=== PATIENT | female | born 1955 | race Caucasian/White ===

== ENCOUNTER 2018-06-06 13:34 | Observation (INO) ==
[2018-06-06 14:22] LABS: Basophils # 0.1 10*3/uL (0.0-0.2); Basophils % 0.9 % (0.0-0.8); Eosinophils # 0.1 10*3/uL (0.0-0.87); Eosinophils % 1.3 % (0.00-10.9); Hematocrit 42.8 VOL% (35.7-47.0); Hemoglobin 14.2 GM/DL (12.0-16.0); Immature Granulocytes % 0.3 %; Immature Granulocytes Absolute 0.03 #; Lymphocytes # 2.8 10*3/uL (1.4-4.0); Lymphocytes % 30.7 % (21.3-54.2); Mean Corpuscular HGB Conc 33.2 GM/DL (32-36); Mean Corpuscular Hemoglobin 32 PG (27-34); Mean Corpuscular Volume 95.3 FL (87-102); Mean Platelet Volume 10.1 FL (9.6-12.0); Monocytes # 0.8 10*3/uL (0.11-0.8); Neutrophils # 5.3 10*3/uL (1.4-7.4); Neutrophils % 57.8 % (38.7-73.9); Platelet Count 259 T/CUMM (130-400); Red Blood Count 4.49 MC/CUMM (3.8-5.5); Red Cell Distribution Width 13.8 % (9.3-17.3); White Blood Count 9.1 T/CUMM (4-12)
[2018-06-06 14:53] LABS: Alanine Aminotransferase 29 U/L (13-56); Albumin 3.4 G/DL (3.4-5.0); Alkaline Phosphatase 97 U/L (45-117); Aspartate Amino Transferase 19 U/L (0-37); Bilirubin,Total < 0.39 MG/DL (0.2-1.0); Blood Urea Nitrogen 17 MG/DL (7-18); Calcium 8.8 MG/DL (8.5-10.1); Glucose 118 MG/DL (74-106); Osmolality,Calculated 283.3 MOS/KG (273-304); Potassium 3.5 MMOL/L (3.5-5.1); Sodium 141 MMOL/L (136-145); Total Protein 8.1 G/DL (6.4-8.3)
[2018-06-06] MEDS ORDERED: ONDANSETRON 4 MG/2 ML VIAL IV PRN (15:39)
[2018-06-06] MEDS ORDERED: ENOXAPARIN 80 MG/0.8 ML SYRINGE SUBCUT STA (15:39)
[2018-06-06] MEDS ORDERED: ACETAMINOPHEN 325 MG TABLET PO PRN (15:39)
[2018-06-06] MEDS ORDERED: VORTIOXETINE HYDROBROMIDE 20 MG PO SCH (21:00)
[2018-06-06] MEDS: FAMOTIDINE 20 MG TABLET PO SCH (21:46)
[2018-06-06] MEDS: ROSUVASTATIN 20 MG TABLET PO SCH (21:47)
[2018-06-06] MEDS: amLODIPine 5 MG TABLET PO SCH (21:48)
[2018-06-06] MEDS: CYANOCOBALAMIN 500 MCG TABLET PO SCH (21:49)
[2018-06-06] MEDS: CLOPIDOGREL 75 MG TABLET PO SCH (21:49)
[2018-06-06] MEDS: hydroCHLOROthiazide 12.5 MG CAPSULE PO SCH (21:50)
[2018-06-06] MEDS: CARVEDILOL 25 MG TABLET PO SCH (21:50)
[2018-06-06] MEDS: ASPIRIN EC 325 MG TABLET PO SCH (21:51)
[2018-06-06] MEDS: clonazePAM 0.5 MG TABLET PO PRN (21:52)
[2018-06-06] MEDS: ZALEPLON 5 MG CAPSULE PO SCH (21:52)
[2018-06-06] MEDS: GABAPENTIN 300 MG CAPSULE PO SCH (21:54)
[2018-06-06] MEDS: DOCUSATE SODIUM 100 MG CAPSULE PO SCH (21:54)
[2018-06-07 06:35] LABS: Basophils # 0.1 10*3/uL (0.0-0.2); Basophils % 0.9 % (0.0-0.8); Eosinophils # 0.2 10*3/uL (0.0-0.87); Eosinophils % 2.1 % (0.00-10.9); Hematocrit 39.3 VOL% (35.7-47.0); Hemoglobin 13.4 GM/DL (12.0-16.0); Immature Granulocytes % 0.4 %; Immature Granulocytes Absolute 0.03 #; Lymphocytes # 3.3 10*3/uL (1.4-4.0); Lymphocytes % 42.3 % (21.3-54.2); Mean Corpuscular HGB Conc 34.1 GM/DL (32-36); Mean Corpuscular Hemoglobin 33 PG (27-34); Mean Corpuscular Volume 96.6 FL (87-102); Mean Platelet Volume 10.2 FL (9.6-12.0); Monocytes # 0.9 10*3/uL (0.11-0.8); Monocytes % 11.9 % (1.7-12.7); Neutrophils # 3.3 10*3/uL (1.4-7.4); Neutrophils % 42.4 % (38.7-73.9); Platelet Count 237 T/CUMM (130-400); Red Blood Count 4.07 MC/CUMM (3.8-5.5); Red Cell Distribution Width 13.8 % (9.3-17.3); White Blood Count 7.8 T/CUMM (4-12)
[2018-06-07 07:19] LABS: Calcium 8.5 MG/DL (8.5-10.1); Osmolality,Calculated 281.5 MOS/KG (273-304); Potassium 3.6 MMOL/L (3.5-5.1); Thyroid Stimulating Hormone 1.71 uIU/ml (0.358-3.74)
[2018-06-07] MEDS: DOCUSATE SODIUM 100 MG CAPSULE PO SCH ×2 (09:23→21:16)
[2018-06-07] MEDS: PANTOPRAZOLE 40 MG TABLET PO SCH (09:23)
[2018-06-07] MEDS ORDERED: NITROGLYCERIN SL 0.4 MG TABLET SL PRN (09:36)
[2018-06-07 10:33] LABS: Risk Ratio 10.19; VLDL CHOLESTEROL 258.8 MG/DL
[2018-06-07] MEDS: GEMFIBROZIL 600 MG TABLET PO SCH (16:29)
[2018-06-07] MEDS: CYANOCOBALAMIN 500 MCG TABLET PO SCH (21:11)
[2018-06-07] MEDS: GABAPENTIN 300 MG CAPSULE PO SCH (21:11)
[2018-06-07] MEDS: ZALEPLON 5 MG CAPSULE PO SCH (21:12)
[2018-06-07] MEDS: hydroCHLOROthiazide 12.5 MG CAPSULE PO SCH (21:13)
[2018-06-07] MEDS: FAMOTIDINE 20 MG TABLET PO SCH (21:13)
[2018-06-07] MEDS: clonazePAM 0.5 MG TABLET PO PRN (21:14)
[2018-06-07] MEDS: CARVEDILOL 25 MG TABLET PO SCH (21:14)
[2018-06-07] MEDS: CLOPIDOGREL 75 MG TABLET PO SCH (21:15)
[2018-06-07] MEDS: ASPIRIN EC 325 MG TABLET PO SCH (21:15)
[2018-06-07] MEDS: amLODIPine 5 MG TABLET PO SCH (21:16)
[2018-06-07] MEDS: ROSUVASTATIN 20 MG TABLET PO SCH (21:16)
[2018-06-07] MEDS: ACETAMINOPHEN 325 MG TABLET PO SCH (23:41)
[2018-06-08 05:30] LABS: Basophils # 0.1 10*3/uL (0.0-0.2); Basophils % 0.8 % (0.0-0.8); Eosinophils # 0.2 10*3/uL (0.0-0.87); Eosinophils % 2.2 % (0.00-10.9); Hematocrit 39.4 VOL% (35.7-47.0); Hemoglobin 12.9 GM/DL (12.0-16.0); Immature Granulocytes % 0.4 %; Immature Granulocytes Absolute 0.03 #; Lymphocytes # 3.2 10*3/uL (1.4-4.0); Lymphocytes % 40.9 % (21.3-54.2); Mean Corpuscular HGB Conc 32.7 GM/DL (32-36); Mean Corpuscular Hemoglobin 32 PG (27-34); Mean Corpuscular Volume 96.1 FL (87-102); Mean Platelet Volume 10.5 FL (9.6-12.0); Monocytes # 0.9 10*3/uL (0.11-0.8); Monocytes % 11.6 % (1.7-12.7); Neutrophils # 3.5 10*3/uL (1.4-7.4); Neutrophils % 44.1 % (38.7-73.9); Platelet Count 225 T/CUMM (130-400); Red Cell Distribution Width 13.9 % (9.3-17.3); White Blood Count 7.9 T/CUMM (4-12)
[2018-06-08 05:54] LABS: Calcium 8.1 MG/DL (8.5-10.1); Osmolality,Calculated 285.3 MOS/KG (273-304); Potassium 3.8 MMOL/L (3.5-5.1)
[2018-06-08] MEDS: ACETAMINOPHEN 325 MG TABLET PO SCH (10:57)
[2018-06-08] MEDS: PANTOPRAZOLE 40 MG TABLET PO SCH (10:57)
[2018-06-08] MEDS: GEMFIBROZIL 600 MG TABLET PO SCH (10:57)
[2018-06-08] MEDS: DOCUSATE SODIUM 100 MG CAPSULE PO SCH (10:58)
[2018-06-08] MEDS: GABAPENTIN 300 MG CAPSULE PO SCH ×2 (10:58→11:11)
[2018-06-08 12:09] VITALS: BP 127/62
== END 2018-06-08 14:20 | disposition home or self-care (01) ==
LOC: N.EDINP 13:34 → N.ED 13:34 → N.EDINP 18:15 → N.TELEN 18:19
PROVIDERS: ADMIT Family Medicine; ATTEND Family Medicine

== ENCOUNTER 2019-02-13 16:50 | Inpatient (IN) ==
[2019-02-13 17:37] LABS: Basophils # 0.1 10*3/uL (0.0-0.2); Basophils % 0.7 % (0.0-0.8); Eosinophils # 0.1 10*3/uL (0.0-0.87); Eosinophils % 1.4 % (0.00-10.9); Hematocrit 46.6 VOL% (35.7-47.0); Immature Granulocytes % 0.3 %; Immature Granulocytes Absolute 0.02 #; Lymphocytes # 2.7 10*3/uL (1.4-4.0); Lymphocytes % 37.4 % (21.3-54.2); Mean Corpuscular HGB Conc 32.2 GM/DL (32-36); Mean Corpuscular Hemoglobin 31 PG (27-34); Mean Corpuscular Volume 96.5 FL (87-102); Mean Platelet Volume 10.5 FL (9.6-12.0); Monocytes # 0.8 10*3/uL (0.11-0.8); Monocytes % 11.6 % (1.7-12.7); Neutrophils # 3.5 10*3/uL (1.4-7.4); Neutrophils % 48.6 % (38.7-73.9); Platelet Count 217 T/CUMM (130-400); Red Blood Count 4.83 MC/CUMM (3.8-5.5); Red Cell Distribution Width 13.8 % (9.3-17.3); White Blood Count 7.1 T/CUMM (4-12)
[2019-02-13 17:50] LABS: INR 0.9; PT Patient Result 9.9 SECS; Partial Thromboplastin Time 26.4 SECS (0-40)
[2019-02-13 17:57] LABS: Alanine Aminotransferase 24 U/L (13-56); Albumin 3.8 G/DL (3.4-5.0); Alkaline Phosphatase 94 U/L (45-117); Aspartate Amino Transferase 23 U/L (0-37); Blood Urea Nitrogen 17 MG/DL (7-18); Calcium 8.2 MG/DL (8.5-10.1); Glucose 105 MG/DL (74-106); Osmolality,Calculated 280.4 MOS/KG (273-304); Potassium 4.1 MMOL/L (3.5-5.1); Sodium 140 MMOL/L (136-145); Total Protein 7.6 G/DL (6.4-8.3)
[2019-02-13] MEDS ORDERED: NITROGLYCERIN SL 0.4 MG TABLET SL PRN (18:45)
[2019-02-13] MEDS ORDERED: ACETAMINOPHEN 325 MG SUPP RECTAL PRN (18:54)
[2019-02-13 19:15] LABS: Risk Ratio 8.64; VLDL CHOLESTEROL 196.6 MG/DL
[2019-02-13] MEDS: ALBUTEROL/IPRATROPIUM 3 ML NEB RESP TX SCH (19:50)
[2019-02-13] MEDS ORDERED: VORTIOXETINE HYDROBROMIDE 20 MG PO SCH (21:00)
[2019-02-13] MEDS ORDERED: ROSUVASTATIN 20 MG TABLET PO SCH (21:00)
[2019-02-13] MEDS ORDERED: MORPHINE 4 MG/1 ML VIAL IV PRN (21:50)
[2019-02-13] MEDS: ASPIRIN EC 325 MG TABLET PO SCH (22:09)
[2019-02-13] MEDS: CARVEDILOL 25 MG TABLET PO SCH (22:09)
[2019-02-13] MEDS: GABAPENTIN 300 MG CAPSULE PO SCH (22:09)
[2019-02-13] MEDS: FAMOTIDINE 20 MG TABLET PO SCH (22:09)
[2019-02-13] MEDS: ROSUVASTATIN 20 MG TABLET PO SCH (22:09)
[2019-02-13] MEDS: amLODIPine 5 MG TABLET PO SCH (22:09)
[2019-02-13] MEDS: hydroCHLOROthiazide 12.5 MG CAPSULE PO SCH (22:09)
[2019-02-13] MEDS: CLOPIDOGREL 75 MG TABLET PO SCH (22:09)
[2019-02-13] MEDS: ARIPiprazole 5 MG TABLET PO SCH (22:15)
[2019-02-14] MEDS: ALBUTEROL/IPRATROPIUM 3 ML NEB RESP TX SCH ×4 (00:42→20:01)
[2019-02-14 04:44] LABS: Basophils % 0.5 % (0.0-0.8); Eosinophils % 0.2 % (0.00-10.9); Hematocrit 42.7 VOL% (35.7-47.0); Hemoglobin 13.3 GM/DL (12.0-16.0); Immature Granulocytes % 0.5 %; Immature Granulocytes Absolute 0.04 #; Lymphocytes # 1.5 10*3/uL (1.4-4.0); Mean Corpuscular HGB Conc 31.1 GM/DL (32-36); Mean Corpuscular Hemoglobin 30 PG (27-34); Mean Corpuscular Volume 97.3 FL (87-102); Mean Platelet Volume 10.6 FL (9.6-12.0); Monocytes # 0.4 10*3/uL (0.11-0.8); Neutrophils # 6.8 10*3/uL (1.4-7.4); Neutrophils % 77.8 % (38.7-73.9); Platelet Count 211 T/CUMM (130-400); Red Blood Count 4.39 MC/CUMM (3.8-5.5); White Blood Count 8.8 T/CUMM (4-12)
[2019-02-14 05:15] LABS: Albumin 3.6 G/DL (3.4-5.0); Bilirubin,Total 0.5 MG/DL (0.2-1.0); Calcium 8.6 MG/DL (8.5-10.1); Osmolality,Calculated 285.4 MOS/KG (273-304); Potassium 4.6 MMOL/L (3.5-5.1); Total Protein 7.4 G/DL (6.4-8.3)
[2019-02-14] MEDS: OMEGA 3 ACID ETHYL ESTERS 1 GM CAPSULE PO SCH (10:10)
[2019-02-14] MEDS: GEMFIBROZIL 600 MG TABLET PO SCH ×2 (10:10→16:07)
[2019-02-14] MEDS: ACETAMINOPHEN 500 MG TABLET PO PRN (12:27)
[2019-02-14] MEDS: ENOXAPARIN 40 MG/0.4 ML SYRINGE SUBCUT SCH (16:07)
[2019-02-14] MEDS: ARIPiprazole 5 MG TABLET PO SCH (23:48)
[2019-02-14] MEDS: ROSUVASTATIN 20 MG TABLET PO SCH (23:49)
[2019-02-14] MEDS: ASPIRIN EC 325 MG TABLET PO SCH (23:49)
[2019-02-14] MEDS: amLODIPine 5 MG TABLET PO SCH (23:49)
[2019-02-14] MEDS: CARVEDILOL 25 MG TABLET PO SCH (23:49)
[2019-02-14] MEDS: GABAPENTIN 300 MG CAPSULE PO SCH (23:49)
[2019-02-14] MEDS: hydroCHLOROthiazide 12.5 MG CAPSULE PO SCH (23:49)
[2019-02-14] MEDS: CLOPIDOGREL 75 MG TABLET PO SCH (23:50)
[2019-02-14] MEDS: FAMOTIDINE 20 MG TABLET PO SCH (23:50)
[2019-02-15] MEDS: ALBUTEROL/IPRATROPIUM 3 ML NEB RESP TX SCH ×4 (00:01→19:00)
[2019-02-15] MEDS: ROSUVASTATIN 20 MG TABLET PO SCH ×2 (02:09→20:24)
[2019-02-15] MEDS: GABAPENTIN 300 MG CAPSULE PO SCH ×2 (02:09→20:25)
[2019-02-15] MEDS: ASPIRIN EC 325 MG TABLET PO SCH ×2 (02:09→20:25)
[2019-02-15] MEDS: CARVEDILOL 25 MG TABLET PO SCH ×2 (02:09→20:25)
[2019-02-15] MEDS: hydroCHLOROthiazide 12.5 MG CAPSULE PO SCH ×2 (02:09→20:24)
[2019-02-15] MEDS: ARIPiprazole 5 MG TABLET PO SCH ×2 (02:09→20:24)
[2019-02-15] MEDS: CLOPIDOGREL 75 MG TABLET PO SCH ×2 (02:10→20:25)
[2019-02-15] MEDS: FAMOTIDINE 20 MG TABLET PO SCH ×2 (02:10→20:25)
[2019-02-15] MEDS: amLODIPine 5 MG TABLET PO SCH ×2 (02:10→20:29)
[2019-02-15 04:25] LABS: Basophils % 0.3 % (0.0-0.8); Eosinophils % 0.3 % (0.00-10.9); Hematocrit 41.4 VOL% (35.7-47.0); Hemoglobin 13.7 GM/DL (12.0-16.0); Immature Granulocytes % 0.2 %; Immature Granulocytes Absolute 0.02 #; Lymphocytes # 3.1 10*3/uL (1.4-4.0); Lymphocytes % 31.7 % (21.3-54.2); Mean Corpuscular HGB Conc 33.1 GM/DL (32-36); Mean Corpuscular Hemoglobin 31 PG (27-34); Mean Corpuscular Volume 93.9 FL (87-102); Mean Platelet Volume 10.9 FL (9.6-12.0); Monocytes # 0.7 10*3/uL (0.11-0.8); Monocytes % 6.9 % (1.7-12.7); Neutrophils % 60.6 % (38.7-73.9); Platelet Count 205 T/CUMM (130-400); Red Blood Count 4.41 MC/CUMM (3.8-5.5); Red Cell Distribution Width 13.9 % (9.3-17.3); White Blood Count 9.9 T/CUMM (4-12)
[2019-02-15 04:43] LABS: Calcium 8.9 MG/DL (8.5-10.1); Osmolality,Calculated 281.5 MOS/KG (273-304); Potassium 3.5 MMOL/L (3.5-5.1)
[2019-02-15 04:47] LABS: Albumin 3.5 G/DL (3.4-5.0); Bilirubin,Total 0.6 MG/DL (0.2-1.0); Calcium 8.9 MG/DL (8.5-10.1); Osmolality,Calculated 281.5 MOS/KG (273-304); Potassium 3.5 MMOL/L (3.5-5.1); Total Protein 7.4 G/DL (6.4-8.3)
[2019-02-15] MEDS: OMEGA 3 ACID ETHYL ESTERS 1 GM CAPSULE PO SCH (09:37)
[2019-02-15] MEDS: ACETAMINOPHEN 500 MG TABLET PO PRN (09:37)
[2019-02-15] MEDS: GEMFIBROZIL 600 MG TABLET PO SCH ×2 (09:38→16:23)
[2019-02-15] MEDS: ENOXAPARIN 40 MG/0.4 ML SYRINGE SUBCUT SCH (14:51)
[2019-02-15] MEDS: NICOTINE 21 MG/24 HR PATCH TRANSDERM SCH (15:26)
[2019-02-16] MEDS: ALBUTEROL/IPRATROPIUM 3 ML NEB RESP TX SCH ×5 (00:32→19:39)
[2019-02-16 05:02] LABS: Basophils % 0.2 % (0.0-0.8); Hematocrit 43.7 VOL% (35.7-47.0); Hemoglobin 15.1 GM/DL (12.0-16.0); Immature Granulocytes % 0.6 %; Immature Granulocytes Absolute 0.08 #; Lymphocytes # 1.5 10*3/uL (1.4-4.0); Mean Corpuscular HGB Conc 34.6 GM/DL (32-36); Mean Corpuscular Hemoglobin 31 PG (27-34); Mean Corpuscular Volume 89.4 FL (87-102); Mean Platelet Volume 10.9 FL (9.6-12.0); Monocytes # 0.7 10*3/uL (0.11-0.8); Neutrophils # 11.5 10*3/uL (1.4-7.4); Neutrophils % 83.2 % (38.7-73.9); Platelet Count 224 T/CUMM (130-400); Red Blood Count 4.89 MC/CUMM (3.8-5.5); Red Cell Distribution Width 13.1 % (9.3-17.3); White Blood Count 13.9 T/CUMM (4-12)
[2019-02-16 05:30] LABS: Calcium 8.8 MG/DL (8.5-10.1); Osmolality,Calculated 269.5 MOS/KG (273-304); Potassium 2.9 MMOL/L (3.5-5.1); Prealbumin 22.3 MG/DL (20-40)
[2019-02-16] MEDS ORDERED: hydrALAZINE 20 MG/1 ML VIAL IV ONE ×2 (05:34→12:26)
[2019-02-16 06:27] LABS: Albumin 3.7 G/DL (3.4-5.0); Bilirubin,Total 0.5 MG/DL (0.2-1.0); Calcium 9.2 MG/DL (8.5-10.1); Osmolality,Calculated 269.5 MOS/KG (273-304); Total Protein 8.5 G/DL (6.4-8.3)
[2019-02-16 07:12] LABS: Amorphous Crystals,Urine Occasional /HPF (Few); Apearance,Urine CLEAR (Clear); Bacteria,Urine Occasional /HPF (Few); Bilirubin,Urine Negative (Negative); Blood, Urine Moderate mg/dL (Negative); Glucose,Urine (UA) 50 mg/dL (Negative); Ketones,Urine Negative (Negative); Mucus,Urine Occasional /LPF (Occasional); Nitrite,Urine Negative (Negative); Protein,Urine 100 MG/DL; RBC,Urine 19 /HPF (0-4); Squamous Epithelial Cell,Urine Occasional /HPF (0-10); Urine Color Yellow (Yellow); Urine Specific Gravity 1.015 (1.001-1.035); Urine Urobilinogen < 2.0 EU/DL (0.2-1.0); WBC,Urine 5 /HPF (0-6)
[2019-02-16] MEDS ORDERED: SODIUM CHLORIDE 0.9% 1,000 ML IV SCH (08:00)
[2019-02-16 08:25] LABS: Barbiturates Screen,Urine Negative (Negative); Benzodiazepines Screen,Urine Negative (Negative); Cannabinoid Screen,Urine Negative (Negative); Opiate Screen,Urine Negative (Negative); Phencyclidine Screen,Urine Negative (Negative)
[2019-02-16] MEDS: GEMFIBROZIL 600 MG TABLET PO SCH ×2 (09:20→16:34)
[2019-02-16] MEDS: POTASSIUM CHLORIDE 20 MEQ TABLET PO SCH ×2 (09:20→12:39)
[2019-02-16] MEDS: NICOTINE 21 MG/24 HR PATCH TRANSDERM SCH (09:20)
[2019-02-16] MEDS: OMEGA 3 ACID ETHYL ESTERS 1 GM CAPSULE PO SCH (09:22)
[2019-02-16] MEDS: CLINDAMYCIN INJ 600 MG in PREMIX 1 EACH IV SCH ×2 (12:38→20:33)
[2019-02-16] MEDS ORDERED: MORPHINE 4 MG/1 ML VIAL IV PRN (15:01)
[2019-02-16] MEDS: ENOXAPARIN 40 MG/0.4 ML SYRINGE SUBCUT SCH (15:16)
[2019-02-16] MEDS ORDERED: hydrALAZINE 20 MG/1 ML VIAL IV PRN (15:17)
[2019-02-16] MEDS: CARVEDILOL 25 MG TABLET PO SCH (20:32)
[2019-02-16] MEDS: amLODIPine 5 MG TABLET PO SCH (20:32)
[2019-02-16] MEDS: ROSUVASTATIN 20 MG TABLET PO SCH (20:32)
[2019-02-16] MEDS: FAMOTIDINE 20 MG TABLET PO SCH (20:32)
[2019-02-16] MEDS: GABAPENTIN 300 MG CAPSULE PO SCH (20:32)
[2019-02-16] MEDS: ASPIRIN EC 325 MG TABLET PO SCH (20:32)
[2019-02-17 01:48] VITALS: BP 205/85
== END 2019-02-17 00:15 | disposition expired | DRG 64 ==
LOC: N.ED 16:50 → N.EDINP 17:37 → SUATTDRO 17:37 → N.4E 19:49
PROVIDERS: ADMIT Internal Medicine; ATTEND Internal Medicine